=== PATIENT | male | born 1995 | race Caucasian/White ===

== ENCOUNTER 2016-10-15 10:44 | Emergency (ER) | payer SELFPAY ==
[~2016-10-15] VITALS: Ht 175.3 cm; Wt 60.0 kg
[2016-10-15 10:47] VITALS: BP 145/84; PULSE 82; RESP 20; TEMP 98.5; O2SAT 97
[2016-10-15 10:56] VITALS: BP 154/86; PULSE 81; RESP 12; O2SAT 100
[2016-10-15] MEDS ORDERED: ONDANSETRON ODT 4 MG TAB PO ONE (11:15)
[2016-10-15] MEDS ORDERED: PANTOPRAZOLE SOD 40 MG DELAYED RELEASE TAB PO ONE (11:15)
--- NOTE | 2016-10-15 11:28 | PD ---
HPI Chief Complaint: GI Complaint Time Seen by Provider: 10:54 Travel History International Travel<30 days: No Contact w/Intl Traveler<30days: No History of Present Illness HPI 21yo M with PMH of depression and bipolar disorder presents to the ED with multiple complaints today. Pt states he has been working too much at work and does a lot of heavy lifting so he has bilateral upper back pain and right lower back pain that is worst with movement. Pt also has been having some vomiting and epigastric abdominal pain as well as nonbloody diarrhea. Denies any fever, cough, chest pain, sob, testicular pain, penile discharge or rash, focal weakness or numbness. Denies any suicidal or homicidal ideations. 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[employer]) Cancer: No Cardiovascular Problems: Yes (HEART MURMUR) Diabetes: No Diminished Hearing: No Gastrointestinal Disorders: Yes Genitourinary: No Headaches: Yes (Complains of chronic headaches) Musculoskeletal: No Neurologic: Yes Psychiatric: Yes (Bipolar, depression, ADHD) Respiratory: No Immunizations Current: Yes Migraines: No Seizures: Yes Thyroid Disease: No Ulcer: No Past Surgical History Surgical History: No Previous Surgery Appendectomy: No Section: No Cholecystectomy: No Other Surgery: No Social History Alcohol Use: Yes (occasional) Tobacco Use: Yes (two ppd) Substance Use: No Allergies-Medications (Allergen,Severity, Reaction): Coded Allergies: Seroquel (Unverified Allergy, Severe, AGITATION, 05/30/15) Concerta (Verified Adverse Reaction, Severe, EXTREME FEAR AND AGITATION, ) PER MOTHER, EXTREME FEAR AND AGITATION Reported Meds & Prescriptions Reported Meds & Active Scripts Active No Active Prescriptions or Reported Medications Review of Systems Except as stated in HPI: all other systems reviewed are Neg Physical Exam Narrative GENERAL: 21yo M not in distress. SKIN: Focused skin assessment warm/dry. HEAD: Atraumatic. Normocephalic. EYES: Pupils equal and round. No scleral icterus. No injection or drainage. CARDIOVASCULAR: Regular rate and rhythm. No murmur appreciated. RESPIRATORY: No accessory muscle use. Clear to auscultation. Breath sounds equal bilaterally. GASTROINTESTINAL: Abdomen soft, mild epigastric tenderness. No rebound tenderness or guarding. MUSCULOSKELETAL: No obvious deformities. No clubbing. No cyanosis. No edema. BACK: No midline ttp thoracic or lumbar spine. +TTP bilateral trapezius. Right paraspinal muscle. NEUROLOGICAL: Awake and alert. No obvious cranial nerve deficits. Motor grossly within normal limits. Normal speech. Data Data Last Documented VS Vital Signs Date Time Temp Pulse Resp B/P Pulse Ox O2 Delivery O2 Flow Rate FiO2 10/15/16 10:56 81 12 154/86 100 Room Air 10/15/16 10:47 98.5 Orders Pantoprazole (Protonix) (10/15/16 11:15) Ondansetron Odt (Zofran Odt) (10/15/16 11:15) Acetaminophen (Tylenol) (10/15/16 12:00) [facility] Medical Decision Making Medical Screen Exam Complete: Yes Emergency Medical Condition: Yes Differential Diagnosis Gastroenteritis vs. dehydration vs. musculoskeletal pain vs. malingering. Narrative Course 21yo M with depression and bipolar disorder here with multiple complaints. Pt is refusing lab work and asking for a work note. Pt given protonix, acetaminophen and zofran. Pt is also refusing urine and states he knows he does not have an infection. Pt states he just wants a work note for 2 days. Pt is well appearing and has not vomited here. Return precautions given. Diagnosis Primary Impression: Gastroenteritis Patient Instructions: General Instructions Departure Forms: Tests/Procedures, Work Release Enter return to work date: Oct 17, 2016 Additional Instructions: Please follow up with your PMD in 3-7 days. Return to the ED if symptoms worsen. Med/Other Pt SpecificInfo: Prescription(s) given Scripts Acetaminophen (Acetaminophen Extra Strength)500 Mg Tablet1 Tab PO Q6HR PRN ( PAIN SCALE 1 TO 4) #20 Prov:Danitza Hooks 10/15/16 Disposition: 01 DISCHARGE HOME Condition: Stable Danitza Hooks Oct 15, 2016 11:28
[2016-10-15] MEDS ORDERED: ACETAMINOPHEN 325 MG TAB PO ONE (12:00)
[2016-10-15] MEDS ORDERED: ACET-898 PO (12:01)
== END 2016-10-15 12:10 | disposition home or self-care (01) ==
LOC: NEPD 10:44
DX: K52.9 Noninfective gastroenteritis and colitis, unspecified (principal); F31.9 Bipolar disorder, unspecified; M54.5 Low back pain; M54.9 Dorsalgia, unspecified; F90.9 Attention-deficit hyperactivity disorder, unspecified type; R56.9 Unspecified convulsions; F17.200 Nicotine dependence, unspecified, uncomplicated
CPT/HCPCS: 99283

== ENCOUNTER 2016-12-07 09:53 | Emergency (ER) | payer SELFPAY ==
[~2016-12-07] VITALS: Ht 177.8 cm; Wt 66.0 kg
[~2016-12-07 09:53] MED LIST: ACET-898 PO
[2016-12-07 09:56] VITALS: BP 131/63; PULSE 71; RESP 12; TEMP 98.2; O2SAT 98
[2016-12-07 10:17] VITALS: BP 135/83; PULSE 68; RESP 15; TEMP 97.5; O2SAT 100
[2016-12-07] MEDS ORDERED: SODIUM CHLOR 0.9% 1000 ML INJ 1,000 ML IV ONE (11:14)
[2016-12-07] MEDS ORDERED: SODIUM CHLORIDE 0.9% FLUSH 10 ML FLUSH IVF PRN (11:15)
[2016-12-07] MEDS ORDERED: PROCHLORPERAZINE INJ 10 MG/2 ML VIAL IVP ONE (11:15)
--- NOTE | 2016-12-07 11:41 | RADRPT ---
EXAM DATE/TIME: 12/07/2016 11:31 [place] COMPARISON: CT BRAIN W/O CONTRAST, May 30, 2015, 18:09. INDICATIONS : Cephalgia and left hand numbness for three days. RADIATION DOSE: 34.69 CTDIvol (mGy) MEDICAL HISTORY : Seizures. Cardiovascular disease SURGICAL HISTORY : None. ENCOUNTER: Initial ACUITY: 1 day PAIN SCALE: 7/10 LOCATION: Bilateral head TECHNIQUE: Multiple contiguous axial images were obtained of the head. Using automated exposure control and adj ustment of the mA and/or kV according to patient size, radiation dose was kept as low as reasonably a chievable to obtain optimal diagnostic quality images. DICOM format image data is available electro nically for review and comparison. FINDINGS: CEREBRUM: The ventricles are normal for age. No evidence of midline shift, mass lesion, hemorrhage or acute in farction. No extra-axial fluid collections are seen. POSTERIOR FOSSA: The cerebellum and brainstem are intact. The 4th ventricle is midline. The cerebellopontine angle i s unremarkable. EXTRACRANIAL: The visualized portion of the orbits is intact. SKULL: The calvaria is intact. No evidence of skull fracture. CONCLUSION: Normal examination. Edis Leon MD on December 07, 2016 at 11:39 Board Certified Radiologist. This report was verified electronically.
[2016-12-07 11:49] LABS: AUTOMATED NEUTROPHIL # 6.2 TH/MM3 (1.8-7.7); BASOPHIL # 0.1 TH/MM3 (0-0.2); BASOPHIL % 0.8 % (0.0-2.0); EOSINOPHIL # 0.3 TH/MM3 (0-0.4); EOSINOPHIL % 3.3 % (0.0-4.0); HEMATOCRIT 47.2 % (39.0-51.0); HEMO FLAGS DIFF FINAL; LYMPH % 19.5 % (9.0-44.0); LYMPHOCYTE # 1.8 TH/MM3 (1.0-4.8); MEAN CELL VOLUME 92.5 FL (80.0-100.0); MEAN CORPUSCULAR HEMOGLOBIN 31.9 PG (27.0-34.0); MEAN CORPUSCULAR HGB CONC 34.5 % (32.0-36.0); MONO % 8.6 % (0.0-8.0); NEUT % 67.8 % (16.0-70.0); PLATELET COUNT 245 TH/MM3 (150-450); RED CELL DISTRIBUTION WIDTH 13.4 % (11.6-17.2); WHITE BLOOD COUNT 9.2 TH/MM3 (4.0-11.0)
[2016-12-07 12:10] VITALS: O2SAT 99
--- NOTE | 2016-12-07 12:17 | PD ---
HPI Chief Complaint: Headache Time Seen by Provider: 10:25 Travel History International Travel<30 days: No Contact w/Intl Traveler<30days: No Traveled to known affect area: No History of Present Illness HPI 21-year-old male came to the emergency room with history of bitemporal headache that started this morning at 9 AM. Patient has frequent history of headaches and this is no different. However he was vomiting and that's why came to the emergency room. Although upon asking patient says he does get vomiting with previous headaches as well. He is just frustrated because his headaches keep coming back. He works at a [employer] and this happened when he was at work. The light kind of bothers the headache and makes it worse. No fever or chills. No history of neck pain or neck rigidity. Vital signs were stable. Patient requested no narcotics for the headache. He does not have a primary care physician and has been in the emergency room many times in the past for various issues. PFSH Past Medical History Narrative Medical List of his past medical, surgical, social and family history is reviewed from the nursing note. ADHD: Yes Autoimmune Disease: No Bipolar Disorder: Yes Weight (Kg): 3 Depression: Yes Cancer: No Cardiovascular Problems: Yes (HEART MURMUR) Diabetes: No Diminished Hearing: No Gastrointestinal Disorders: Yes Genitourinary: No Headaches: Yes (Complains of chronic headaches) Musculoskeletal: No Neurologic: Yes Psychiatric: Yes (Bipolar, depression, ADHD) Respiratory: No Immunizations Current: Yes Migraines: Yes Seizures: Yes Thyroid Disease: No Ulcer: No Past Surgical History Surgical History: No Previous Surgery Appendectomy: No Section: No Cholecystectomy: No Other Surgery: No Social History Alcohol Use: Yes Tobacco Use: No Substance Use: No Allergies-Medications (Allergen,Severity, Reaction): Coded Allergies: quetiapine (Unverified Allergy, Severe, AGITATION, 12/07/16) methylphenidate (Unverified Adverse Reaction, Severe, EXTREME FEAR AND AGITATION, 12/07/16) PER MOTHER, EXTREME FEAR AND AGITATION Comments List of his allergies reviewed from the nursing note. Reported Meds & Prescriptions Reported Meds & Active Scripts Active No Active Prescriptions or Reported Medications Narrative Medication List of his home medications reviewed from the nursing note. Review of Systems Except as stated in HPI: all other systems reviewed are Neg Physical Exam Narrative GENERAL: Awake, alert, moderate distress SKIN: Focused skin assessment warm/dry. HEAD: Atraumatic. Normocephalic. EYES: Pupils equal and round. No scleral icterus. No injection or drainage. ENT: No nasal bleeding or discharge. Mucous membranes pink and moist. NECK: Trachea midline. No JVD. No neck pain or rigidity CARDIOVASCULAR: Regular rate and rhythm. No murmur appreciated. RESPIRATORY: No accessory muscle use. Clear to auscultation. Breath sounds equal bilaterally. GASTROINTESTINAL: Abdomen soft, non-tender, nondistended. Hepatic and splenic margins not palpable. MUSCULOSKELETAL: No obvious deformities. No clubbing. No cyanosis. No edema. NEUROLOGICAL: Awake and alert. No obvious cranial nerve deficits. Motor grossly within normal limits. Normal speech. PSYCHIATRIC: Appropriate mood and affect; insight and judgment normal. Data Data Last Documented VS Orders Orders Complete Blood Count With Diff (12/07/16 11:14) Basic Metabolic Panel (Bmp) (12/07/16 11:14) Ct Brain W/O Iv Contrast(Rout) (12/07/16 11:14) Ecg Monitoring (12/07/16 11:14) Iv Access Insert/Monitor (12/07/16 11:14) Oximetry (12/07/16 11:14) Sodium Chloride 0.9% Flush (Ns Flush) (12/07/16 11:15) Prochlorperazine Inj (Compazine Inj) (12/07/16 11:15) Sodium Chlor 0.9% 1000 Ml Inj (Ns 1000 M (12/07/16 11:14) Labs Laboratory Tests Test 12/07/16 11:24 White Blood Count 9.2 TH/MM3 Red Blood Count 5.10 MIL/MM3 Hemoglobin 16.3 GM/DL Hematocrit 47.2 % Mean Corpuscular Volume 92.5 FL Mean Corpuscular Hemoglobin 31.9 PG Mean Corpuscular Hemoglobin Concent 34.5 % Red Cell Distribution Width 13.4 % Platelet Count 245 TH/MM3 Mean Platelet Volume 9.1 FL Neutrophils (%) (Auto) 67.8 % Lymphocytes (%) (Auto) 19.5 % Monocytes (%) (Auto) 8.6 % Eosinophils (%) (Auto) 3.3 % Basophils (%) (Auto) 0.8 % Neutrophils # (Auto) 6.2 TH/MM3 Lymphocytes # (Auto) 1.8 TH/MM3 Monocytes # (Auto) 0.8 TH/MM3 Eosinophils # (Auto) 0.3 TH/MM3 Basophils # (Auto) 0.1 TH/MM3 CBC Comment DIFF FINAL Differential Comment Blood Urea Nitrogen 9 MG/DL Creatinine 0.94 MG/DL Random Glucose 94 MG/DL Calcium Level 8.8 MG/DL Sodium Level 136 MEQ/L Potassium Level 4.0 MEQ/L Chloride Level 102 MEQ/L Carbon Dioxide Level 28.0 MEQ/L Anion Gap 6 MEQ/L Estimat Glomerular Filtration Rate 99 ML/MIN MDM Medical Decision Making Medical Screen Exam Complete: Yes Emergency Medical Condition: Yes Medical Record Reviewed: Yes Differential Diagnosis status migrainous, intracranial bleed, intracranial mass Narrative Course 12:15 PM CAT scan was within normal limit. Awaiting for the blood test result. He was given IV Reglan and fluid. However patient just wanted to leave because he has to go to work tomorrow. Patient was in full capacity to make decisions for himself. Since the blood test results were not back I asked him to sign AMA. Procedures EKG Prior to Arrival: No Diagnosis Primary Impression: Headache Qualified Codes: R51 - Headache Scripts No Active Prescriptions or Reported Meds Disposition: 07 AGAINST MEDICAL ADVICE Condition: Serious Rik Dick MD Dec 07, 2016 12:17
== END 2016-12-07 12:37 | disposition left against medical advice (07) ==
LOC: NEPC 09:53
DX: R51 Headache (principal)
CPT/HCPCS: 70450; 80048; 85025; 96374; 99285; J0780; J7030

== ENCOUNTER 2017-01-08 11:17 | Emergency (ER) | payer SELFPAY ==
[~2017-01-08] VITALS: Ht 175.3 cm; Wt 65.0 kg
[2017-01-08 11:19] VITALS: BP 137/92; PULSE 74; RESP 13; TEMP 97.7; O2SAT 100
[2017-01-08] MEDS ORDERED: IBUP1TAB7 PO (11:38)
[2017-01-08] MEDS ORDERED: ROBA500T PO (11:38)
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
== END 2017-01-08 11:59 | disposition home or self-care (01) ==
LOC: NEPK 11:17
DX: S39.012A Strain of muscle, fascia and tendon of lower back, initial encounter (principal); F90.9 Attention-deficit hyperactivity disorder, unspecified type; F31.9 Bipolar disorder, unspecified; R01.1 Cardiac murmur, unspecified; R56.9 Unspecified convulsions; X50.0XXA Overexertion from strenuous movement or load, initial encounter
CPT/HCPCS: 99283

== ENCOUNTER 2017-04-12 23:47 | Emergency (ER) | payer SELFPAY ==
[~2017-04-12] VITALS: Ht 175.3 cm; Wt 65.0 kg
[~2017-04-12 23:47] MED LIST changes: -ACET-898 PO; +IBUP1TAB7 PO; +ROBA500T PO
[2017-04-12 23:49] VITALS: BP 147/87; PULSE 80; RESP 16; TEMP 98.1; O2SAT 100
--- NOTE | 2017-04-13 00:13 | PD ---
HPI Chief Complaint: Cold / Flu Symptoms Time Seen by Provider: 00:09 Travel History International Travel<30 days: No Contact w/Intl Traveler<30days: No Traveled to known affect area: No History of Present Illness HPI 21-year-old white male presents to emergency department for evaluation of cough and congestion. He states that he had taking care of his girlfriend was diagnosed with the flu this past week. He's been sick with cough, congestion, sore throat, myalgias, arthralgias and general malaise. He states that he feels some tightness in his chest. He denies nausea but has had posttussive emesis. No abdominal pain or urinary symptoms. Symptoms are moderate. No alleviating factors. History Past Medical Histgory Narrative Medical Denies diabetes and hypertension. No asthma. Tetanus Vaccination: < 5 Years Hx Cancer: No Past Surgical History Surgical History: No Previous Surgery Social History Alcohol Use: Yes Tobacco Use: Yes Allergies-Medications (Allergen,Severity, Reaction): Coded Allergies: quetiapine (Unverified Allergy, Severe, AGITATION, 04/12/17) methylphenidate (Unverified Adverse Reaction, Severe, EXTREME FEAR AND AGITATION, 04/12/17) PER MOTHER, EXTREME FEAR AND AGITATION Reported Meds & Prescriptions Reported Meds & Active Scripts Active Ibuprofen 800 Mg Tab 800 Mg PO Q6HR PRN Robaxin (Methocarbamol) 500 Mg Tab 500 Mg PO QID Review of Systems Except as stated in HPI: all other systems reviewed are Neg Physical Exam Narrative GENERAL: Well-developed, well-nourished in no acute distress. Nontoxic appearing. HEAD: Normocephalic, atraumatic. EYES: Pupils equal round and reactive. Extraocular motions intact. No scleral icterus. No injection or drainage. ENT: TMs clear without erythema. The external auditory canals clear. Nose: clear . Posterior pharynx is pink and moist. No tonsillar edema or exudate. Uvula midline. Airway patent. NECK: Trachea midline.Supple, nontender, moves head freely. No central bony tenderness or spasm. CARDIOVASCULAR: Regular rate and rhythm without murmurs, gallops, or rubs. RESPIRATORY: Clear to auscultation. Breath sounds equal bilaterally. No wheezes , rales, or rhonchi. GASTROINTESTINAL: Abdomen soft, non-tender, nondistended. No hepato-splenomegaly , or palpable masses. No guarding. EXTREMITIES: No clubbing, cyanosis, or edema. No joint tenderness, effusion, or edema noted. BACK: Nontender without deformity or crepitance. No flank tenderness. Data Data Last Documented VS Vital Signs Date Time Temp Pulse Resp B/P (MAP) Pulse Ox O2 Delivery O2 Flow Rate FiO2 04/12/17 23:49 98.1 80 16 147/87 (107) 100 Room Air MDM Medical Screen Exam Complete: Yes Emergency Medical Condition: No Differential Diagnosis MDM: High Differential diagnoses: Pneumonia, bronchitis, URI, asthma, RAD, influenza Narrative Course A medical screening exam was performed: At the time of evaluation the presenting medical condition was determined not to be of an emergent nature. The patient was given the option of receiving additional care, but declined. Patient was given options for additional community resources from which to obtain care. The Patient Has Been advised to seek medical attention for their presenting complaint. The patient has been advised to return to the ER at any time if an emergent condition develops. Primary Impression: Encounter for medical screening examination Condition: Willie Araiza Apr 13, 2017 00:13
== END 2017-04-13 | disposition left against medical advice (07) ==
LOC: NEPK 23:47
DX: R05 Cough (principal)
CPT/HCPCS: 99281